=== PATIENT | male | born 1980 | race Caucasian/White ===

== ENCOUNTER 2019-06-29 16:43 | Emergency (ER) | payer SELFPAY ==
[~2019-06-29] VITALS: Ht 182.9 cm; Wt 111.6 kg
[2019-06-29 16:53] VITALS: BP 146/88
== END 2019-06-29 17:59 | disposition home or self-care (01) ==
LOC: ER 16:43
DX: J06.9 Acute upper respiratory infection, unspecified (principal)
CPT/HCPCS: 71045-TC

== ENCOUNTER 2019-07-01 22:32 | Emergency (ER) | payer OTHER ==
[~2019-07-01] VITALS: Ht 182.9 cm; Wt 129.7 kg
[2019-07-01 22:45] VITALS: BP 140/84
--- NOTE | 2019-07-02 00:03 | NUR ---
Patient discharged to home in stable condition. Written and verbal after care instructions given. Patient verbalizes understanding of instruction. ambulatory with a steady gait
== END 2019-07-02 00:03 | disposition home or self-care (01) ==
LOC: ER 22:38
DX: J02.9 Acute pharyngitis, unspecified (principal)
CPT/HCPCS: 86403-TC; 87070-TC

== ENCOUNTER 2019-07-12 21:52 | Emergency (ER) | payer OTHER ==
[~2019-07-12] VITALS: Ht 182.9 cm; Wt 127.0 kg
--- NOTE | 2019-07-12 21:52 | NUR ---
BIBS. DIFFICULTY BREATHING X 3 DAYS. BEEN SICK FOR THE PAST 3 WEEKS. COVID TESTING 07/08/19 PENDING RESULT. 02 SAT 99%; pt to bed 6, aaox4, vss, pending er provider indra
[2019-07-12] MEDS ORDERED: ALBUTEROL SULFATE INH 18 GM HFA.AER.AD IH PRN (22:30)
[2019-07-12 22:46] LABS: BASOPHILS % (AUTO) 0.6 % (0.0-2.0); EOSINOPHILS % (AUTO) 1.4 % (0.0-6.0); HEMATOCRIT 45 % (39-51); HEMOGLOBIN 15.3 g/dL (13.5-17.5); LYMPHOCYTES # (AUTO) 2.5 /CMM (0.8-4.8); LYMPHOCYTES % (AUTO) 34.9 % (20.0-44.0); MEAN CORPUSCULAR HGB CONC 34 g/dl (31.0-36.0); MEAN CORPUSCULAR VOLUME 79 fL (80-96); MONOCYTES # (AUTO) 0.6 /CMM (0.1-1.30); MONOCYTES % (AUTO) 7.7 % (2.0-12.0); NEUTROPHILS % (AUTO) 55.4 % (43.0-81.0); PLATELET COUNT (AUTO) 247 /CMM (150-450); RED BLOOD CELL COUNT(AUTO) 5.78 MIL/uL (4.5-6.0); WHITE BLOOD COUNT (AUTO) 7.3 K/uL (4.3-11.0)
[2019-07-12 22:49] LABS: CALCIUM, SERUM 9.5 mg/dL (8.5-10.1); CARBON DIOXIDE 28 mmol/L (21-32); CHLORIDE 99 mmol/L (98-107); CREATININE 1.1 mg/dL (0.6-1.3); GLUCOSE 92 mg/dL (74-106); POTASSIUM 3.7 mmol/L (3.5-5.1); SODIUM SERUM 136 mmol/L (136-145); UREA NITROGEN, BLOOD 10 mg/dL (7-18)
[2019-07-12 23:00] VITALS: BP 120/75
[2019-07-12 23:00] LABS: B-TYPE NATRIURETIC PEPTIDE 10 PG/ML (0-125)
--- NOTE | 2019-07-12 23:12 | NUR ---
Patient discharged to home in stable condition. Written and verbal after care instructions given. Patient verbalizes understanding of instruction.
== END 2019-07-12 23:14 | disposition home or self-care (01) ==
LOC: ER 21:53
DX: J06.9 Acute upper respiratory infection, unspecified (principal); R94.31 Abnormal electrocardiogram [ECG] [EKG]
CPT/HCPCS: 36415; 71045-TC; 80048-TC; 83605-TC; 83880; 84484-TC; 85025-TC

== ENCOUNTER 2019-07-26 12:29 | Emergency (ER) | payer OTHER ==
[~2019-07-26] VITALS: Ht 182.9 cm; Wt 122.5 kg
[2019-07-26 12:54] VITALS: BP 112/70
== END 2019-07-26 15:25 | disposition home or self-care (01) ==
LOC: ER 12:31
DX: J06.9 Acute upper respiratory infection, unspecified (principal); J40 Bronchitis, not specified as acute or chronic; Z60.2 Problems related to living alone
CPT/HCPCS: 71045-TC

== ENCOUNTER 2019-08-01 14:02 | Emergency (ER) | payer OTHER ==
[~2019-08-01] VITALS: Ht 182.9 cm; Wt 123.8 kg
[2019-08-01 14:21] VITALS: BP 117/72
--- NOTE | 2019-08-01 14:48 | NUR ---
AT BEDSIDE FOR EVAL.
--- NOTE | 2019-08-01 15:19 | NUR ---
Patient discharged to home in stable condition. Written and verbal after care instructions given. Patient verbalizes understanding of instruction.
== END 2019-08-01 15:19 | disposition home or self-care (01) ==
LOC: ER 14:05
DX: J06.9 Acute upper respiratory infection, unspecified (principal); Z60.2 Problems related to living alone

== ENCOUNTER 2019-08-02 17:08 | Emergency (ER) | payer OTHER ==
[~2019-08-02] VITALS: Ht 177.8 cm; Wt 122.9 kg
[2019-08-02 17:20] VITALS: BP 131/88
--- NOTE | 2019-08-02 17:53 | NUR ---
Patient discharged to home in stable condition. Written and verbal after care instructions given. Patient verbalizes understanding of instruction. Pt ambulatory with a steady gait
== END 2019-08-02 17:55 | disposition home or self-care (01) ==
LOC: ER 17:09
DX: B35.3 Tinea pedis (principal); Z60.2 Problems related to living alone

== ENCOUNTER 2019-08-11 17:07 | Emergency (ER) | payer OTHER ==
[~2019-08-11] VITALS: Ht 185.4 cm; Wt 124.7 kg
--- NOTE | 2019-08-11 17:30 | NUR ---
PT AMBULATORY TO ER BED 11 C/O SCROTAL PAIN AND STATING THAT THE "VEINS" ARE SWOLLEN. PT STATRES BEEN HURTING FOR THE PAST WEEK.
--- NOTE | 2019-08-11 17:35 | NUR ---
AT BEDSIDE FOR EVAL.
--- NOTE | 2019-08-11 17:38 | NUR ---
ACCOMPANIED DR ANNE FOR SCROTAL EXAM, SCROTUM APPEARS NORMAL.
--- NOTE | 2019-08-11 17:51 | NUR ---
U/S TECH AT BEDSIDE FOR SCROTAL ULTRASOUND.
[2019-08-11 18:12] VITALS: BP 132/77
--- NOTE | 2019-08-11 18:12 | NUR ---
Patient discharged to home in stable condition. Written and verbal after care instructions given. Patient verbalizes understanding of instruction.
== END 2019-08-11 18:13 | disposition home or self-care (01) ==
LOC: ER 17:11
DX: S39.011A Strain of muscle, fascia and tendon of abdomen, initial encounter (principal); Z60.2 Problems related to living alone; X58.XXXA Exposure to other specified factors, initial encounter; Y93.89 Activity, other specified; Y92.89 Other specified places as the place of occurrence of the external cause; Y99.8 Other external cause status
CPT/HCPCS: 76870-TC

== ENCOUNTER 2024-09-14 15:10 | Emergency (ER) | payer OTHER ==
[~2024-09-14] VITALS: Ht 177.8 cm; Wt 148.8 kg
[2024-09-14] MEDS: IV NS 0.9% 1,000 ML BAG IV ONE (16:30)
[2024-09-14 16:54] LABS: BASOPHILS # (AUTO) 0.1 K/uL (0.0-0.2); BASOPHILS % (AUTO) 0.6 % (0.0-2.0); EOSINOPHILS # (AUTO) 0.1 K/uL (0.0-0.7); EOSINOPHILS % (AUTO) 1.6 % (0.0-6.0); HEMATOCRIT 43 % (39-51); HEMOGLOBIN 14.6 g/dL (13.5-17.5); LYMPHOCYTES # (AUTO) 1.7 K/uL (0.8-4.8); LYMPHOCYTES % (AUTO) 18.7 % (20.0-44.0); MEAN CORPUSCULAR HEMOGLOBIN 27 PG (26.0-33.0); MEAN CORPUSCULAR HGB CONC 34 g/dl (31.0-36.0); MEAN CORPUSCULAR VOLUME 79 fL (80-96); MONOCYTES # (AUTO) 0.7 K/uL (0.1-1.30); MONOCYTES % (AUTO) 8.3 % (2.0-12.0); NEUTROPHILS # (AUTO) 6.3 K/uL (1.8-8.9); NEUTROPHILS % (AUTO) 70.8 % (43.0-81.0); PLATELET COUNT (AUTO) 210 K/uL (150-450); WHITE BLOOD COUNT (AUTO) 8.9 K/uL (4.3-11.0)
[2024-09-14 16:58] LABS: CREATININE 1.1 mg/dL (0.6-1.3)
[2024-09-14 17:05] LABS: BILIRUBIN,DIRECT 0.6 mg/dL (0.0-0.2); BILIRUBIN,TOTAL 1.5 mg/dL (0.2-1.0); TOTAL PROTEIN, SERUM 7.8 g/dL (6.4-8.2)
[2024-09-14] MEDS ORDERED: ONDA4TAB5 PO (17:25)
[2024-09-14] MEDS ORDERED: CIPR-262 PO (17:25)
[2024-09-14] MEDS ORDERED: LOPE2CAP40 PO (17:25)
[2024-09-14 17:48] VITALS: BP 128/66; TEMP 98.4; O2SAT 97
== END 2024-09-14 17:49 | disposition home or self-care (01) ==
LOC: ER 15:16
DX: R10.84 Generalized abdominal pain (principal); R19.7 Diarrhea, unspecified; R11.0 Nausea; K76.0 Fatty (change of) liver, not elsewhere classified; Z60.2 Problems related to living alone
CPT/HCPCS: 36415; 80048-TC; 80076-TC; 83690-TC; 85025-TC; J7030